=== PATIENT | male | born 1995 | race Hispanic/Latino ===

== ENCOUNTER 2018-04-30 11:13 | Observation (INO) | payer SELFPAY ==
[~2018-04-30] VITALS: Ht 170.2 cm; Wt 52.3 kg
[2018-04-30] MEDS ORDERED: ASPIRIN 325 MG TABLET ONE (11:28)
[2018-04-30 11:48] LABS: BASOPHILS % (AUTO) 0.7 % (0.0-5.0); EOSINOPHILS % (AUTO) 0.3 % (0.0-8.0); HEMATOCRIT 43.7 % (42-54); LYMPHOCYTES % (AUTO) 36.2 % (21.0-51.0); MEAN CORPUSCULAR HEMOGLOBIN 31.6 pg (27.0-33.0); MEAN CORPUSCULAR HGB CONC 34.6 g/dL (32.0-36.0); MEAN CORPUSCULAR VOLUME 91.5 fL (79-99); MONOCYTES % (AUTO) 9.9 % (3.0-13.0); NEUTROPHILS % (AUTO) 52.9 % (40.0-77.0); PLATELET COUNT (AUTO) 198 K/uL (130-400); RED BLOOD CELL COUNT(AUTO) 4.78 MIL/uL (4.50-6.20); RED CELL DISTRIBUTION WIDTH 12.6 % (11.0-15.5); WHITE BLOOD COUNT (AUTO) 4.9 K/uL (4.8-10.8)
[2018-04-30 11:59] LABS: INR 0.98 (0.85-1.15); PARTIAL THROMBOPLASTIN TIME 27.8 SEC (26.3-35.5); PROTHROMBIN TIME 10.3 SEC (9.6-11.6)
[2018-04-30 12:12] LABS: CREATININE 0.9 mg/dL (0.5-1.5); POTASSIUM 3.7 mmol/L (3.5-5.1)
[2018-04-30 12:22] LABS: ALBUMIN 4.8 g/dL (3.5-5.0); BILIRUBIN,TOTAL 1.2 mg/dL (0.2-1.0); TOTAL PROTEIN, SERUM 7.9 g/dL (6.0-8.3)
[2018-04-30] MEDS ORDERED: SODIUM CHLORIDE 0.9% 10 ML VIAL IVP PRN (13:30)
[2018-04-30 14:05] LABS: AMPHET/METH SCREEN,URINE NEGATIVE (NEGATIVE); BARBITURATE SCREEN, URINE NEGATIVE (NEGATIVE); BENZODIAZEPINES SCREEN,URINE NEGATIVE (NEGATIVE); CANNABINOID SCREEN,URINE NEGATIVE (NEGATIVE); COCAINE SCREEN,URINE POSITIVE (NEGATIVE); OPIATE SCREEN,URINE NEGATIVE (NEGATIVE); PHENCYCLIDINE SCREEN,URINE NEGATIVE (NEGATIVE)
[2018-04-30 14:32] VITALS: BP 131/74
[2018-04-30] MEDS: SODIUM CHLORIDE 0.9% 1000ML 1,000 ML IV SCH (15:45)
[2018-04-30] MEDS ORDERED: ACETAMINOPHEN 325 MG TAB PO PRN (15:45)
[2018-04-30 16:00] VITALS: BP 131/79
[2018-04-30 20:07] VITALS: BP 123/67
[2018-04-30 23:43] VITALS: BP 111/66
[2018-05-01 03:43] VITALS: BP 101/58
[2018-05-01 03:51] LABS: HEMATOCRIT 40.6 % (42-54); MEAN CORPUSCULAR HEMOGLOBIN 32.3 pg (27.0-33.0); MEAN CORPUSCULAR HGB CONC 35.1 g/dL (32.0-36.0); MEAN CORPUSCULAR VOLUME 92.1 fL (79-99); PLATELET COUNT (AUTO) 209 K/uL (130-400); RED CELL DISTRIBUTION WIDTH 12.7 % (11.0-15.5); WHITE BLOOD COUNT (AUTO) 7.4 K/uL (4.8-10.8)
[2018-05-01 04:00] LABS: BILIRUBIN,TOTAL 0.7 mg/dL (0.2-1.0); CREATININE 0.9 mg/dL (0.5-1.5); POTASSIUM 3.8 mmol/L (3.5-5.1)
[2018-05-01 04:33] LABS: LYMPHOCYTES % (MANUAL) 38 % (22-44); MONOCYTES % (MANUAL) 6 % (2-9); SEGMENTED NEUTROPHILS % 56 % (40-70)
[2018-05-01 04:34] LABS: MAN.DIFF COMMENT-IMPRESSION MANUAL DIFFERENTIAL; PLATELET MORPHOLOGY COMMENT ADEQUATE
[2018-05-01] MEDS: SODIUM CHLORIDE 0.9% 1000ML 1,000 ML IV SCH ×2 (05:05→18:25)
[2018-05-01 07:00] VITALS: BP 97/77
[2018-05-01 11:00] VITALS: BP 106/60
[2018-05-01 16:00] VITALS: BP 121/59
[2018-05-01 19:46] VITALS: BP 134/68
[2018-05-02] VITALS: BP 156/95
[2018-05-02 04:14] VITALS: BP 115/97
[2018-05-02 08:35] VITALS: BP 116/68
== END 2018-05-02 11:58 | disposition home or self-care (01) ==
LOC: EDH 11:13 → EDHIP 11:14 → 2AH 14:23
PROVIDERS: ADMIT Internal Medicine; ATTEND Internal Medicine
DX: J93.83 Other pneumothorax (principal); F17.210 Nicotine dependence, cigarettes, uncomplicated; F14.90 Cocaine use, unspecified, uncomplicated; Z72.89 Other problems related to lifestyle; Z79.01 Long term (current) use of anticoagulants; Z79.899 Other long term (current) drug therapy
CPT/HCPCS: 36415 ×2; 71045 ×5; 80053 ×2; 80305; 82550; 84484; 85025 ×2; 85610; 85730; 93005; 99285; G0378 ×49

== ENCOUNTER 2019-01-21 03:01 | Emergency (ER) | payer OTHER | END 2019-01-21 03:21 | disposition home or self-care (01) | LOC: EDH 03:01 | DX: Z02.83 Encounter for blood-alcohol and blood-drug test (principal) ==

== ENCOUNTER 2019-06-23 21:21 | Emergency (ER) | payer OTHER ==
[2019-06-23] MEDS ORDERED: ACETAMINOPHEN-CODEINE 300/30MG TAB ONE (21:43)
[2019-06-23] MEDS ORDERED: KETOROLAC TROMETHAMINE 30MG/ML ONE (21:43)
[2019-06-23] MEDS ORDERED: TETANUS/DIPHTHERIA TOXOID [ADULT] 0.5 ML VIAL IM ONE (21:43)
== END 2019-06-23 22:36 | disposition home or self-care (01) ==
LOC: EDH 21:21
DX: S60.413A Abrasion of left middle finger, initial encounter (principal); Z72.0 Tobacco use; W39.XXXA Discharge of firework, initial encounter; Y93.89 Activity, other specified; Y92.098 Other place in other non-institutional residence as the place of occurrence of the external cause; Y99.8 Other external cause status
CPT/HCPCS: 73130; 90471; 90714; 96372; 99284; J1885

== ENCOUNTER 2021-01-24 02:17 | Emergency (ER) | payer OTHER ==
[~2021-01-24] VITALS: Ht 172.7 cm; Wt 57.6 kg
[2021-01-24 02:57] VITALS: BP 134/78
== END 2021-01-24 02:58 | disposition home or self-care (01) ==
LOC: EDH 02:17
DX: Z02.83 Encounter for blood-alcohol and blood-drug test (principal)